=== PATIENT | female | born 1995 | race Caucasian/White ===

== ENCOUNTER 2020-10-23 15:57 | Inpatient (IN) | payer BC, OTHER ==
[~2020-10-23] VITALS: Ht 162.6 cm; Wt 112.0 kg
[~2020-10-23 15:57] MED LIST: Macrobid 100 M100 MG PO; PHENAZOPYRIDINE95 MG PO; PRENATAL TABLE1 EAC2 PO; Zofran4 MG PO
[2020-10-23 16:34] LABS: BASOPHILS ABSOLUTE AUTO 0.01 K/mm3 (0.00-0.23); BASOPHILS PERCENT AUTO 0 % (0-2); EOSINOPHILS ABSOLUTE AUTO 0.05 K/mm3 (0.00-0.68); EOSINOPHILS PERCENT AUTO 1 % (0-6); Hematocrit 40.6 % (33.0-51.0); Hemoglobin 13.3 g/dL (11.5-16.0); IMMATURE GRAN ABSOLUTE AUTO 0.03 K/mm3 (0.00-0.10); IMMATURE GRAN PERCENT AUTO 0 % (0-1); LYMPHOCYTES ABSOLUTE AUTO 1.08 K/mm3 (0.84-5.20); LYMPHOCYTES PERCENT AUTO 12 % (21-46); MONOCYTES ABSOLUTE AUTO 0.69 K/mm3 (0.16-1.47); MONOCYTES PERCENT AUTO 7 % (4-13); Mean Corpuscular HGB 31.3 pg (26.0-34.0); Mean Corpuscular HGB Conc 32.8 g/dL (31.5-36.5); Mean Corpuscular Volume 96 fL (80-100); Mean Platelet Volume 10.8 fL (9.1-12.4); NEUTROPHILS ABSOLUTE AUTO 7.47 K/mm3 (1.96-9.15); NEUTROPHILS PERCENT AUTO 80 % (41-73); Platelet Count 186 K/mm3 (150-400); RDW Coefficient Variation 14.1 % (11.7-14.2); RDW Standard Deviation 49.1 fL (35.1-46.3); Red Blood Cell Count 4.25 M/mm3 (3.80-5.20); White Blood Cell Count 9.33 K/mm3 (4.00-11.30)
[2020-10-23 16:54] LABS: Alanine Aminotransfer (ALT/SGP 13 U/L (12-78); Albumin, Blood 2.5 g/dL (3.4-5.0); Albumin/Globulin Ratio 0.7 (0.8-1.8); Alk Phos 123 U/L (50-136); Anion Gap 9 mmol/L (6-16); Aspartate Aminotrans (AST/SGOT 15 U/L (12-37); Bilirubin, Total 0.3 mg/dL (0.1-1.0); Blood Urea Nitrogen 12 mg/dL (8-24); Bun/Creatinine Ratio 22.3 (12.0-20.0); CO2, Blood 20 mmol/L (21-32); Calcium, Blood 9.2 mg/dL (8.5-10.1); Chloride, Blood 111 mmol/L (98-108); Creatinine, Blood 0.54 mg/dL (0.40-1.00); Globulin, Blood 3.8 g/dL (2.2-4.0); Glomerular Filtration Rate >60 (60-); Glucose, Blood 77 mg/dL (70-99); Potassium, Blood 4.5 mmol/L (3.5-5.5); Sodium, Blood 140 mmol/L (136-145); Total Protein, Blood 6.3 g/dL (6.4-8.2)
[2020-10-23 16:57] LABS: Protein, Urine Random 261.6 mg/dL (0.0-11.9); Protein/Creat Ratio, Ur Random 1.5
[2020-10-23 19:18] LABS: Influenza A, PCR Negative (NEGATIVE); Influenza B, PCR Negative (NEGATIVE); Resp Syncytial Virus, PCR Negative (NEGATIVE); SARS-Cov-2 (COVID-19) PCR, MMC Negative (NEGATIVE)
--- NOTE | 2020-10-24 08:50 | NUR ---
A FEW MIN BEFORE 0850, PT CALLED ME IN STATING SHE FELT A "POP" AND HAD A SPOT OF BLOOD WHILE ATTEMPTING TO USE THE BATHROOM. SHE WAS WALKING AROUND IN HER ROOM AND STARTED TO LEAK A SMALL AMOUNT OF PINK TINGED FLUID ON THE FLOOR. I HAD HER LAY IN BED AND NITRAZINED THE FLUID WHICH CAME BACK EQUIVOCAL. SHE IS NOW ATTEMPTING A BM ON THE TOILET WITH HER S.O. IN THE BATHROOM WITH HER. I WILL UPDATE THE PROVIDER.
--- NOTE | 2020-10-24 20:50 | NUR ---
UNABLE TO ASSESS CLONUS AND DTR'S. PT HAS EPIDURAL WITH HEAVY LEGS
[2020-10-24 20:53] LABS: BASOPHILS ABSOLUTE AUTO 0.03 K/mm3 (0.00-0.23); BASOPHILS PERCENT AUTO 0 % (0-2); EOSINOPHILS PERCENT AUTO 0 % (0-6); Hematocrit 41.8 % (33.0-51.0); Hemoglobin 13.8 g/dL (11.5-16.0); IMMATURE GRAN ABSOLUTE AUTO 0.09 K/mm3 (0.00-0.10); IMMATURE GRAN PERCENT AUTO 1 % (0-1); LYMPHOCYTES ABSOLUTE AUTO 1.06 K/mm3 (0.84-5.20); LYMPHOCYTES PERCENT AUTO 6 % (21-46); MONOCYTES PERCENT AUTO 6 % (4-13); Mean Corpuscular HGB 31.3 pg (26.0-34.0); Mean Corpuscular Volume 95 fL (80-100); Mean Platelet Volume 10.7 fL (9.1-12.4); NEUTROPHILS PERCENT AUTO 88 % (41-73); Platelet Count 218 K/mm3 (150-400); RDW Coefficient Variation 14.4 % (11.7-14.2); RDW Standard Deviation 50.3 fL (35.1-46.3); Red Blood Cell Count 4.41 M/mm3 (3.80-5.20); White Blood Cell Count 18.38 K/mm3 (4.00-11.30)
[2020-10-24 21:16] LABS: Alanine Aminotransfer (ALT/SGP 14 U/L (12-78); Albumin, Blood 2.5 g/dL (3.4-5.0); Albumin/Globulin Ratio 0.7 (0.8-1.8); Alk Phos 129 U/L (50-136); Anion Gap 9 mmol/L (6-16); Aspartate Aminotrans (AST/SGOT 17 U/L (12-37); Bilirubin, Total 0.5 mg/dL (0.1-1.0); Blood Urea Nitrogen 16 mg/dL (8-24); CO2, Blood 21 mmol/L (21-32); Chloride, Blood 106 mmol/L (98-108); Creatinine, Blood 0.73 mg/dL (0.40-1.00); Globulin, Blood 3.8 g/dL (2.2-4.0); Glomerular Filtration Rate >60 (60-); Glucose, Blood 108 mg/dL (70-99); Potassium, Blood 4.4 mmol/L (3.5-5.5); Sodium, Blood 136 mmol/L (136-145); Total Protein, Blood 6.3 g/dL (6.4-8.2)
--- NOTE | 2020-10-25 01:07 | NUR ---
RT STOOD BY FOR DELIVERY. BABY WAS DELIVERED TO WARMER WITH STRONG CRY, GOOD TONE AND COLOR. BABY WAS DRIED AND STIMULATED, NO RT INTERVENTIONS REQUIRED. RN TO CALL IF RT NEEDED.
[2020-10-25 03:41] LABS: BASOPHILS ABSOLUTE AUTO 0.05 K/mm3 (0.00-0.23); BASOPHILS PERCENT AUTO 0 % (0-2); EOSINOPHILS PERCENT AUTO 0 % (0-6); Hematocrit 37.4 % (33.0-51.0); Hemoglobin 12.3 g/dL (11.5-16.0); IMMATURE GRAN PERCENT AUTO 1 % (0-1); LYMPHOCYTES ABSOLUTE AUTO 0.91 K/mm3 (0.84-5.20); LYMPHOCYTES PERCENT AUTO 5 % (21-46); MONOCYTES ABSOLUTE AUTO 1.29 K/mm3 (0.16-1.47); MONOCYTES PERCENT AUTO 6 % (4-13); Mean Corpuscular HGB 31.1 pg (26.0-34.0); Mean Corpuscular HGB Conc 32.9 g/dL (31.5-36.5); Mean Corpuscular Volume 95 fL (80-100); Mean Platelet Volume 10.6 fL (9.1-12.4); NEUTROPHILS ABSOLUTE AUTO 17.86 K/mm3 (1.96-9.15); NEUTROPHILS PERCENT AUTO 88 % (41-73); Platelet Count 189 K/mm3 (150-400); RDW Coefficient Variation 14.3 % (11.7-14.2); RDW Standard Deviation 49.9 fL (35.1-46.3); Red Blood Cell Count 3.95 M/mm3 (3.80-5.20); White Blood Cell Count 20.21 K/mm3 (4.00-11.30)
[2020-10-25 04:01] LABS: Alanine Aminotransfer (ALT/SGP 11 U/L (12-78); Albumin, Blood 2.1 g/dL (3.4-5.0); Albumin/Globulin Ratio 0.6 (0.8-1.8); Alk Phos 113 U/L (50-136); Anion Gap 10 mmol/L (6-16); Aspartate Aminotrans (AST/SGOT 18 U/L (12-37); Bilirubin, Total 0.5 mg/dL (0.1-1.0); Blood Urea Nitrogen 17 mg/dL (8-24); Bun/Creatinine Ratio 20.6 (12.0-20.0); CO2, Blood 19 mmol/L (21-32); Calcium, Blood 8.6 mg/dL (8.5-10.1); Chloride, Blood 106 mmol/L (98-108); Creatinine, Blood 0.83 mg/dL (0.40-1.00); Globulin, Blood 3.3 g/dL (2.2-4.0); Glomerular Filtration Rate >60 (60-); Glucose, Blood 89 mg/dL (70-99); Potassium, Blood 4.6 mmol/L (3.5-5.5); Sodium, Blood 135 mmol/L (136-145); Total Protein, Blood 5.4 g/dL (6.4-8.2)
[2020-10-25 12:39] LABS: Mean Corpuscular HGB 31.3 pg (26.0-34.0); Mean Corpuscular HGB Conc 33.3 g/dL (31.5-36.5); Mean Corpuscular Volume 94 fL (80-100); Mean Platelet Volume 10.7 fL (9.1-12.4); Platelet Count 174 K/mm3 (150-400); RDW Coefficient Variation 14.3 % (11.7-14.2); Red Blood Cell Count 3.51 M/mm3 (3.80-5.20); White Blood Cell Count 14.35 K/mm3 (4.00-11.30)
--- NOTE | 2020-10-25 17:34 | NUR ---
PT HAD PRIMARY C/S LAST NOC SHIFT, PT HAS CINTRON INPLACE DRAINING YELLOW URINE, ABD BINDER IN PLACE, DRESSING CLEAN DRY AND INTACT, SL FLUSHES WELL, PT MEDICATES X3 FOR PAIN THIS SHIFT, PT ALDO ANY HEADACHE, VISUAL DISTRUBANCES OR UPPER GASTRIC PAIN THIS SHIFT, VS Q 2HRS PER DR. MARTÍNEZ, VITALS TO BE CHANGED TO Q 4HR IF VITALS WITH IN STABLE PERAMETERS PER Kaleb WAGNER CNM WILL UPDATED CNM. PT UP IN CHAIR TO EAT DINNER TOLORATED WELL.
--- NOTE | 2020-10-26 09:25 | NUR ---
up in bathroom
--- NOTE | 2020-10-26 09:45 | NUR ---
attempt to br feed, walked in 5 minutes into trying and took over with getting baby to latch
--- NOTE | 2020-10-26 10:14 | NUR ---
getting up to walk the shay
--- NOTE | 2020-10-26 13:59 | NUR ---
ambulating in the shay, this is pt second walk in the shay, does well, just slow moving
--- NOTE | 2020-10-26 18:03 | NUR ---
pt motrin is due, but she is sleeping, will give her meds when she wakes up
[2020-10-27] MEDS ORDERED: Percocet 5-3251 EACH PO (10:35)
== END 2020-10-27 11:45 | disposition home or self-care (01) | DRG 788 ==
LOC: OBS 15:57 → BC 15:57 → OBS 18:04 → BC 18:06
PROVIDERS: Obstetrics & Gynecology; ADMIT Advanced Practice Midwife
PROC: 3E0P7VZ Introduction of Hormone into Female Reproductive, Via Natural or Artificial Opening (ICD-10-PCS; 2020-10-23)
PROC: 3E033VJ Introduction of Other Hormone into Peripheral Vein, Percutaneous Approach (ICD-10-PCS; 2020-10-24)
PROC: 3E0R3BZ Introduction of Anesthetic Agent into Spinal Canal, Percutaneous Approach (ICD-10-PCS; 2020-10-24)
PROC: 00HU33Z Insertion of Infusion Device into Spinal Canal, Percutaneous Approach (ICD-10-PCS; 2020-10-24)
PROC: 10H07YZ Insertion of Other Device into Products of Conception, Via Natural or Artificial Opening (ICD-10-PCS; 2020-10-24)
PROC: 10D00Z1 Extraction of Products of Conception, Low, Open Approach (ICD-10-PCS; principal; 2020-10-25 00:30)
DX: O14.04 Mild to moderate pre-eclampsia, complicating childbirth (principal); O33.5XX0 Maternal care for disproportion due to unusually large fetus, not applicable or unspecified; O62.1 Secondary uterine inertia; Z20.828 Contact with and (suspected) exposure to other viral communicable diseases; Z3A.41 41 weeks gestation of pregnancy; Z37.0 Single live birth; O99.214 Obesity complicating childbirth; E66.9 Obesity, unspecified
CPT/HCPCS: 0241U; 36415; 51702; 59025; 80053; 82570; 84156; 85025; 85027; 86850; 86900; 86901; A9270; J0456; J0690; J1885; J2001; J2210; J2370; J2405; J2590; J2765; J3010; J7050; J7120

== ENCOUNTER 2020-10-30 23:38 | Emergency (ER) | payer BC ==
[~2020-10-30] VITALS: Ht 162.6 cm; Wt 103.4 kg
[~2020-10-30 23:38] MED LIST changes: +Percocet 5-3251 EACH PO
[2020-10-31 00:26] LABS: Source, Urine Clean Catch
[2020-10-31 00:35] LABS: Bilirubin, Urine Neg (Neg); Blood, Urine 5+ (Neg); Glucose Qualitative, Urine Neg (Neg); Ketones, Urine Neg (Neg); Leukocyte Esterase, Urine 2+ (Neg); Nitrite, Urine Neg (Neg); Protein, Urine 3+ (Neg); Urobilinogen, Urine NORM (Normal)
[2020-10-31 00:54] LABS: Appearance, Urine Hazy (Clear); Bacteria Few /hpf; Color, Urine Yellow (P-Yellow); Red Blood Cells, Urine TNTC /hpf (0-2); Squamous Epithelial Cells Few /hpf (Few)
[2020-10-31] MEDS ORDERED: CEPH500 PO (01:19)
== END 2020-10-31 01:45 | disposition home or self-care (01) ==
LOC: ER 23:38
PROVIDERS: Emergency Medicine
DX: O86.20 Urinary tract infection following delivery, unspecified (principal); Z88.8 Allergy status to other drugs, medicaments and biological substances; Z98.890 Other specified postprocedural states
CPT/HCPCS: 81001; 87086; 87147; A9270-GY

== ENCOUNTER 2020-11-15 10:49 | Emergency (ER) | payer BC, SELFPAY ==
[~2020-11-15] VITALS: Ht 162.6 cm; Wt 94.3 kg
[~2020-11-15 10:49] MED LIST changes: +CEPH500 PO
[2020-11-15 11:32] LABS: BASOPHILS ABSOLUTE AUTO 0.03 K/mm3 (0.00-0.23); BASOPHILS PERCENT AUTO 0 % (0-2); EOSINOPHILS PERCENT AUTO 1 % (0-6); Hematocrit 41.5 % (33.0-51.0); IMMATURE GRAN ABSOLUTE AUTO 0.02 K/mm3 (0.00-0.10); IMMATURE GRAN PERCENT AUTO 0 % (0-1); LYMPHOCYTES ABSOLUTE AUTO 1.48 K/mm3 (0.84-5.20); LYMPHOCYTES PERCENT AUTO 17 % (21-46); MONOCYTES ABSOLUTE AUTO 0.53 K/mm3 (0.16-1.47); MONOCYTES PERCENT AUTO 6 % (4-13); Mean Corpuscular HGB 30.5 pg (26.0-34.0); Mean Corpuscular HGB Conc 31.3 g/dL (31.5-36.5); Mean Corpuscular Volume 97 fL (80-100); Mean Platelet Volume 9.5 fL (9.1-12.4); NEUTROPHILS ABSOLUTE AUTO 6.69 K/mm3 (1.96-9.15); NEUTROPHILS PERCENT AUTO 76 % (41-73); Platelet Count 359 K/mm3 (150-400); RDW Standard Deviation 46.3 fL (35.1-46.3); Red Blood Cell Count 4.26 M/mm3 (3.80-5.20); White Blood Cell Count 8.85 K/mm3 (4.00-11.30)
[2020-11-15 11:50] LABS: Alanine Aminotransfer (ALT/SGP 24 U/L (12-78); Albumin, Blood 3.4 g/dL (3.4-5.0); Albumin/Globulin Ratio 0.8 (0.8-1.8); Alk Phos 79 U/L (50-136); Anion Gap 9 mmol/L (6-16); Aspartate Aminotrans (AST/SGOT 12 U/L (12-37); Bilirubin, Total 0.5 mg/dL (0.1-1.0); Blood Urea Nitrogen 10 mg/dL (8-24); CO2, Blood 21 mmol/L (21-32); Calcium, Blood 9.3 mg/dL (8.5-10.1); Chloride, Blood 110 mmol/L (98-108); Creatinine, Blood 0.59 mg/dL (0.40-1.00); Globulin, Blood 4.5 g/dL (2.2-4.0); Glomerular Filtration Rate >60 (60-); Glucose, Blood 83 mg/dL (70-99); Potassium, Blood 4.2 mmol/L (3.5-5.5); Sodium, Blood 140 mmol/L (136-145); Total Protein, Blood 7.9 g/dL (6.4-8.2)
[2020-11-15 11:51] LABS: International Normalized Ratio 0.95; Prothrombin Time Results 10.2 Sec (9.7-11.5)
[2020-11-15 12:31] LABS: Influenza A, PCR Negative (NEGATIVE); Influenza B, PCR Negative (NEGATIVE); Resp Syncytial Virus, PCR Negative (NEGATIVE); SARS-Cov-2 (COVID-19) PCR, MMC Negative (NEGATIVE)
[2020-11-15] MEDS ORDERED: CEPH500 PO (14:57)
== END 2020-11-15 16:04 | disposition home or self-care (01) ==
LOC: ER 10:49
PROVIDERS: Physician Assistant
DX: T81.41XA Infection following a procedure, superficial incisional surgical site, initial encounter (principal); L03.311 Cellulitis of abdominal wall; Z88.1 Allergy status to other antibiotic agents; Z88.8 Allergy status to other drugs, medicaments and biological substances
CPT/HCPCS: 0241U; 36415; 74177; 80053; 83605; 85025; 85610; 85730; 87040; 93005; 93010; 96365-59; 96375; 99284-25; J0690; J1200; J1885; J2405; J2765; J7030; Q9967

== ENCOUNTER 2020-11-24 01:28 | Inpatient (IN) | payer BC, SELFPAY ==
[~2020-11-24] VITALS: Ht 162.6 cm; Wt 93.0 kg
[2020-11-24 03:20] LABS: Alanine Aminotransfer (ALT/SGP 16 U/L (12-78); Albumin, Blood 3.1 g/dL (3.4-5.0); Albumin/Globulin Ratio 0.7 (0.8-1.8); Alk Phos 101 U/L (50-136); Anion Gap 9 mmol/L (6-16); Aspartate Aminotrans (AST/SGOT 9 U/L (12-37); Bilirubin, Total 0.4 mg/dL (0.1-1.0); Blood Urea Nitrogen 8 mg/dL (8-24); Bun/Creatinine Ratio 12.8 (12.0-20.0); CO2, Blood 24 mmol/L (21-32); Calcium, Blood 9.3 mg/dL (8.5-10.1); Chloride, Blood 107 mmol/L (98-108); Creatinine, Blood 0.62 mg/dL (0.40-1.00); Globulin, Blood 4.7 g/dL (2.2-4.0); Glomerular Filtration Rate >60 (60-); Glucose, Blood 98 mg/dL (70-99); Potassium, Blood 4.3 mmol/L (3.5-5.5); Sodium, Blood 140 mmol/L (136-145); Total Protein, Blood 7.8 g/dL (6.4-8.2)
[2020-11-24 03:48] LABS: Source, Urine Clean Catch
[2020-11-24 03:50] LABS: Bilirubin, Urine Neg (Neg); Blood, Urine 1+ (Neg); Glucose Qualitative, Urine Neg (Neg); Ketones, Urine 2+ (Neg); Leukocyte Esterase, Urine Neg (Neg); Nitrite, Urine Neg (Neg); Protein, Urine Neg (Neg); Urobilinogen, Urine NORM (Normal)
[2020-11-24 03:52] LABS: Appearance, Urine Clear (Clear); Color, Urine Yellow (P-Yellow)
[2020-11-24 03:59] LABS: BASOPHILS ABSOLUTE AUTO 0.03 K/mm3 (0.00-0.23); BASOPHILS PERCENT AUTO 0 % (0-2); EOSINOPHILS ABSOLUTE AUTO 0.04 K/mm3 (0.00-0.68); EOSINOPHILS PERCENT AUTO 0 % (0-6); Hematocrit 39.1 % (33.0-51.0); Hemoglobin 12.2 g/dL (11.5-16.0); IMMATURE GRAN ABSOLUTE AUTO 0.04 K/mm3 (0.00-0.10); IMMATURE GRAN PERCENT AUTO 0 % (0-1); LYMPHOCYTES PERCENT AUTO 7 % (21-46); MONOCYTES ABSOLUTE AUTO 0.79 K/mm3 (0.16-1.47); MONOCYTES PERCENT AUTO 5 % (4-13); Mean Corpuscular HGB 29.5 pg (26.0-34.0); Mean Corpuscular HGB Conc 31.2 g/dL (31.5-36.5); Mean Corpuscular Volume 95 fL (80-100); Mean Platelet Volume 8.9 fL (9.1-12.4); NEUTROPHILS ABSOLUTE AUTO 12.67 K/mm3 (1.96-9.15); NEUTROPHILS PERCENT AUTO 87 % (41-73); Platelet Count 362 K/mm3 (150-400); RDW Standard Deviation 45.5 fL (35.1-46.3); Red Blood Cell Count 4.13 M/mm3 (3.80-5.20); White Blood Cell Count 14.57 K/mm3 (4.00-11.30)
[2020-11-24 04:00] LABS: Bacteria Few /hpf; Squamous Epithelial Cells Few /hpf (Few); White Blood Cells, Urine 0-2 /hpf (0-5)
--- NOTE | 2020-11-24 05:25 | NUR ---
PT NEW ADMIT FROM ER FOR ABD ABCESS POST . PT A/O, IS PAINFUL W/MVMT. INCISION NEARLY HEALED, NO REDNESS/DRNG NOTED. PT DENIES PAIN TO INCISION, REPORTS PAIN TO LOWER ABD ABOVE INCISION, REPORTS MORE PAIN ON LLQ. PT DENIES N/V/SOB. HR NOTED TACHY, PT DENIES CP/PRESSURE. PT ORIENTED TO ROOM/CALL LIGHT. IN ROOM. PLAN TO MONITOR AND TX PER ORDERS.
--- NOTE | 2020-11-24 05:32 | NUR ---
ABX: PT ASKING IF ABX IS OK TO TAKE WHILE . PER PHARMACIST, UNASYN DOES CROSS OVER INTO BREAST MILK. PT UPDATED, PT REPORTS ONLY HAVING TAKEN ABX ONE OTHER TIME (FOR CURRENT ABCESS) PT REPORTS NO REACTIONS TO CURRENT ABX, AND BABY HAS HAD NO ADVERSE REACTIONS NOTED. PT REPORTS "I THINK MY MOM HAD A REACTION TO A 'CILLIAN' ABX BUT I'M NOT SURE" PT EDUCATED OF POTENTIAL FOR HER OR BABY TO HAVE A REACTION TO ANY ABX. DISCUSSED ABX THERAPY FOR CURRENT INFECTION/ABCESS. PT VERBALIZES UNDERSTANDING AND WISHES TO PROCEED W/ABX PER ORDERS.
[2020-11-24 05:45] LABS: Influenza A, PCR Negative (NEGATIVE); Influenza B, PCR Negative (NEGATIVE); Resp Syncytial Virus, PCR Negative (NEGATIVE); SARS-Cov-2 (COVID-19) PCR, MMC Negative (NEGATIVE)
[2020-11-25 04:17] LABS: BASOPHILS ABSOLUTE AUTO 0.02 K/mm3 (0.00-0.23); BASOPHILS PERCENT AUTO 0 % (0-2); EOSINOPHILS ABSOLUTE AUTO 0.14 K/mm3 (0.00-0.68); EOSINOPHILS PERCENT AUTO 2 % (0-6); Hematocrit 35.1 % (33.0-51.0); Hemoglobin 10.3 g/dL (11.5-16.0); IMMATURE GRAN ABSOLUTE AUTO 0.03 K/mm3 (0.00-0.10); IMMATURE GRAN PERCENT AUTO 0 % (0-1); LYMPHOCYTES ABSOLUTE AUTO 1.49 K/mm3 (0.84-5.20); LYMPHOCYTES PERCENT AUTO 16 % (21-46); MONOCYTES PERCENT AUTO 7 % (4-13); Mean Corpuscular HGB 29.3 pg (26.0-34.0); Mean Corpuscular HGB Conc 29.3 g/dL (31.5-36.5); Mean Platelet Volume 9.2 fL (9.1-12.4); NEUTROPHILS ABSOLUTE AUTO 7.21 K/mm3 (1.96-9.15); NEUTROPHILS PERCENT AUTO 75 % (41-73); Platelet Count 275 K/mm3 (150-400); RDW Coefficient Variation 13.2 % (11.7-14.2); RDW Standard Deviation 48.7 fL (35.1-46.3); Red Blood Cell Count 3.52 M/mm3 (3.80-5.20); White Blood Cell Count 9.59 K/mm3 (4.00-11.30)
[2020-11-25 04:18] LABS: Mean Corpuscular Volume 100 fL (80-100)
--- NOTE | 2020-11-25 04:22 | NUR ---
SHIFT SUMMARY: PT A&O X4. FEBRILE IN BEGINNING OF SHIFT-PROVIDER NOTIFIED. MOST RECENT TEMP WNL AT 98.3. HR TACHY THROUGHOUT NIGHT. PT C/O PAIN IN RLQ. MEDICATED TWICE WITH OXY PER EMAR. GIVEN K PAD THIS MORNING. PT VOIDING IN BSC. SBA FOR ALL TRANSFERS/AMBULATION. PT MARIBEL PO AND DENIES N/V. PT ABLE TO REST MOST OF NIGHT. IVF AND ABX INFUSING PER ORDERS.
--- NOTE | 2020-11-25 17:18 | NUR ---
SHIFT SUMMARY PT HAS DONE WELL THIS SHIFT. TMAX 99.1. PAIN HAS BEEN MANAGED WITH PO MEDICATION AND IV TORADOL PER EMAR. UP TO SHOWER THIS SHIFT AND HAS BEEN IN A RECLINER MOST OF THE DAY. PT STATES THAT SHE FEELS AREA OF PAIN IS "GETTING SMALLER". PLAN TO CONTINUE WITH IV ABX.
--- NOTE | 2020-11-26 04:13 | NUR ---
SHIFT SUMMARY: PT S/P ABD ABSCESS DRG. PT A&O X4. MAX TEMP OF 101.4. PT BEING MEDICATED WITH TORADOL, TYLENOL AND OXY PER EMAR. PT CONTINUES TO C/O LOWER ABD PAIN WHICH INCREASES WITH MOVEMENT/AMBULATION. PT RATING PAIN 3-4 AT REST. AMBULATING TO BATHROOM WITH SBA. SLOW TO TRANSFER R/T PAIN. PT REPORTS FEELING CONSTIPATED. PASSING FLATUS. PT ENCOURAGED TO WALK THE HALLWAY THIS SHIFT, HOWEVER DECLINING AND WANTING TO SLEEP. NAUSEATED IN BEGINNING OF SHIFT AND MEDICATED WITH ZOFRAN AND REGLAN PER EMAR. PLAN TO CONTINUE IV ABX. AWAITING FINAL BLOOD CULTURE RESULTS.
[2020-11-26 05:40] LABS: BASOPHILS ABSOLUTE AUTO 0.02 K/mm3 (0.00-0.23); BASOPHILS PERCENT AUTO 0 % (0-2); EOSINOPHILS ABSOLUTE AUTO 0.18 K/mm3 (0.00-0.68); EOSINOPHILS PERCENT AUTO 2 % (0-6); Hematocrit 30.6 % (33.0-51.0); Hemoglobin 9.5 g/dL (11.5-16.0); IMMATURE GRAN ABSOLUTE AUTO 0.02 K/mm3 (0.00-0.10); IMMATURE GRAN PERCENT AUTO 0 % (0-1); LYMPHOCYTES ABSOLUTE AUTO 1.05 K/mm3 (0.84-5.20); LYMPHOCYTES PERCENT AUTO 12 % (21-46); MONOCYTES ABSOLUTE AUTO 0.63 K/mm3 (0.16-1.47); MONOCYTES PERCENT AUTO 7 % (4-13); Mean Corpuscular HGB 29.4 pg (26.0-34.0); Mean Platelet Volume 8.7 fL (9.1-12.4); NEUTROPHILS ABSOLUTE AUTO 6.87 K/mm3 (1.96-9.15); NEUTROPHILS PERCENT AUTO 78 % (41-73); Platelet Count 328 K/mm3 (150-400); RDW Coefficient Variation 13.2 % (11.7-14.2); RDW Standard Deviation 46.3 fL (35.1-46.3); Red Blood Cell Count 3.23 M/mm3 (3.80-5.20); White Blood Cell Count 8.77 K/mm3 (4.00-11.30)
[2020-11-26 05:48] LABS: Mean Corpuscular Volume 95 fL (80-100)
[2020-11-26 10:42] LABS: Influenza A, PCR Negative (NEGATIVE); Influenza B, PCR Negative (NEGATIVE); Resp Syncytial Virus, PCR Negative (NEGATIVE); SARS-Cov-2 (COVID-19) PCR, MMC Negative (NEGATIVE)
--- NOTE | 2020-11-26 17:37 | NUR ---
SUMMARY: PT IS POD3 PERCUTANIOUS DRAINAGE OF ABSCESS. A/O, VSS. SURGICAL SITES WNL. DOES HAVE SMALL AMT VAGINAL BLEED, SHARYN PAD IN PLACE. MAX TEMP THIS SHIFT WAS 99.9 WILL CTM. ENCOURAGING MOBILITY, PT PAINFUL AND APPEARS WEAK WHEN WALKING, SBA, PT ABLE TO GO ON 2 WALKS IN THE [place]UD[place]. MEDICATED FOR PAIN PER EMAR, PRN. PT HAD BM TODAY. NO ACUTE SAFETY CONCERNS AT THIS TIME. WILL REPORT TO TONY LOWE.
[2020-11-27 04:10] LABS: BASOPHILS ABSOLUTE AUTO 0.02 K/mm3 (0.00-0.23); BASOPHILS PERCENT AUTO 0 % (0-2); EOSINOPHILS ABSOLUTE AUTO 0.15 K/mm3 (0.00-0.68); EOSINOPHILS PERCENT AUTO 2 % (0-6); Hematocrit 32.7 % (33.0-51.0); IMMATURE GRAN ABSOLUTE AUTO 0.02 K/mm3 (0.00-0.10); IMMATURE GRAN PERCENT AUTO 0 % (0-1); LYMPHOCYTES ABSOLUTE AUTO 1.23 K/mm3 (0.84-5.20); LYMPHOCYTES PERCENT AUTO 16 % (21-46); MONOCYTES ABSOLUTE AUTO 0.61 K/mm3 (0.16-1.47); MONOCYTES PERCENT AUTO 8 % (4-13); Mean Corpuscular HGB 28.9 pg (26.0-34.0); Mean Corpuscular HGB Conc 30.6 g/dL (31.5-36.5); Mean Corpuscular Volume 95 fL (80-100); Mean Platelet Volume 8.7 fL (9.1-12.4); NEUTROPHILS ABSOLUTE AUTO 5.85 K/mm3 (1.96-9.15); NEUTROPHILS PERCENT AUTO 74 % (41-73); Platelet Count 349 K/mm3 (150-400); RDW Coefficient Variation 13.2 % (11.7-14.2); RDW Standard Deviation 46.3 fL (35.1-46.3); Red Blood Cell Count 3.46 M/mm3 (3.80-5.20); White Blood Cell Count 7.88 K/mm3 (4.00-11.30)
--- NOTE | 2020-11-27 05:15 | NUR ---
PT T-MAX 99.2 THIS SHIFT; HR REMAINS TACHY LOW 100'S (HR DID INC TO 120 AFTER AMBULATION) PT DENIED CP/PRESSURE/SOB; OTHER VSS. PT REP ABD PAIN LESS SEVERE, REP PAIN LOCALIZING TO RLQ. PT REP HAVING "A RIB OUT" SINCE BEFORE ADMISSION, REP RIB PAIN MORE BOTHERSOME THAN ABD PAIN THIS AM. NO REDNESS/DRNG NOTED FROM HEALING INCISIONS. PT VOIDING URINE W/O DIFFICULTY, CONT TO HAVE SMALL AMT VAGINAL BLEEDING. PT REP MILD NAUSEA BRIEFLY EARLY IN NIGHT, DECLINED NEED FOR NAUSEA MEDS. PT UP PPB W/FWW+SBA, IS PAINFUL W/MVMT; AMBULATION ENC PT MARIBEL. PT PUMPING BREASTMILK, MILK STORED IN FRIDGE. ABX CONT PER ORDERS.
--- NOTE | 2020-11-27 17:12 | NUR ---
SUMMARY: NO ACUTE CHANGE. VSS, AFIBRILE. PT ABLE TO TAKE SEVERAL WALKS. PAIN MANAGED PER EMAR. PLAN IS FOR DISCHARGE LATER TONIGHT, PT AWARE. NO SAFETY CONCERNS.
[2020-11-27] MEDS ORDERED: LEVO750 PO (19:37)
--- NOTE | 2020-11-27 20:31 | NUR ---
PAIN: PT SITTING IN CHAIR, CRYING R/T PAIN. PT STATES PAIN "ABOUT THS SAME IT HAS BEEN FOR THE LAST SEVERAL DAYS" PT REPORTS SOME NAUSEA R/T PAIN. PT VERBALIZING CONCERNS R/T D/C HOME W/O PAIN MED SCRIPT. CURRENT PAIN MED ORDERS, WELL PLAN FOR PT TO D/C W/TYLENOL AND MOTRIN FOR PAIN MGMT TONIGHT, REV W/PT AND . PT REMAINS TEARFUL STATING "I JUST WANT TO SEE MY BABY, I DON'T KNOW WHAT TO DO" PT REQ PAIN MEDS AT THIS TIME AND WANTIGN TO "THINK ABOUT WHAT TO DO" R/T D/C HOME TONIGHT. PT EUDCATED, SUPPORT GIVEN. WILL MONITOR
--- NOTE | 2020-11-27 21:00 | NUR ---
PT REP FEELING "MUCH BETTER" PT STATES PAIN MARIBEL 3/10 AT THIS TIME, REP ABD PAIN IN RLQ. PT STATES PAIN IN RIGHT RIB MORE BOTHERSOME THAN ABD PAIN. PT STATES "I THINK I HAD A PANIC ATTACK EARLIER" REP FEELING MORE CALM AND COMFORTABLE AND WANTS TO D/C HOME TONIGHT.
--- NOTE | 2020-11-27 22:09 | NUR ---
DISCHARGE SUMMARY: PT D/C HOME W/. PT ASSISTED OUT IN W/C BY PHYSIOLOGICAL CHEMIST. PT A/O, NO DISTRESS NOTED AT TIME OF D/C. PT REP PAIN MARIBEL, DENIES N/V. EXTENSIVE SUPPORT AND EDUCATION PROVIDED, PT RECEPTIVE TO INFO. PLAN FOR PT TO MANAGE PAIN W/OTC PAIN MEDS FOR TONIGHT AND CONTACT MD IN AM IF PAIN NOT CONTROLLED. ABX CALLED INTO [facility] PER PT REQ. PT PT HOME HEALTH CLINICIAN TOMORROW. ALL QUESTIONS ANSWERED, DISCHARGE INSTRUCTIONS SENT HOME W/PT.
== END 2020-11-27 22:00 | disposition home or self-care (01) | DRG 776 ==
LOC: ER 01:28 → SURS 01:29
PROVIDERS: Obstetrics & Gynecology; Student in an Organized Health Care Education/Training Program; ADMIT Obstetrics & Gynecology
PROC: 0W9F3ZZ Drainage of Abdominal Wall, Percutaneous Approach (ICD-10-PCS; principal; 2020-11-24)
DX: O86.02 Infection of obstetric surgical wound, deep incisional site (principal); L02.211 Cutaneous abscess of abdominal wall; Z20.822 Contact with and (suspected) exposure to COVID-19; O99.63 Diseases of the digestive system complicating the puerperium; K59.03 Drug induced constipation; O99.215 Obesity complicating the puerperium; E66.9 Obesity, unspecified; O14.05 Mild to moderate pre-eclampsia, complicating the puerperium
CPT/HCPCS: 0241U; 36415; 74177; 75989; 80053; 81001; 83605; 85025; 87040; 87070; 87075; 87205; 96361; 96365; 96374-59; 96376; 99285-25; A9270; G0378; J0290; J0295; J1580; J1885; J2270; J2405; J2765; J3010; J7030; J7040; J7120; Q9967

== ENCOUNTER 2020-12-15 18:59 | Inpatient (IN) | payer BC, OTHER ==
[~2020-12-15] VITALS: Ht 162.6 cm; Wt 93.0 kg
[~2020-12-15 18:59] MED LIST changes: +LEVO750 PO
[2020-12-15 22:16] LABS: BASOPHILS ABSOLUTE AUTO 0.03 K/mm3 (0.00-0.23); BASOPHILS PERCENT AUTO 0 % (0-2); EOSINOPHILS ABSOLUTE AUTO 0.16 K/mm3 (0.00-0.68); EOSINOPHILS PERCENT AUTO 1 % (0-6); Hematocrit 37.4 % (33.0-51.0); Hemoglobin 11.8 g/dL (11.5-16.0); IMMATURE GRAN ABSOLUTE AUTO 0.04 K/mm3 (0.00-0.10); IMMATURE GRAN PERCENT AUTO 0 % (0-1); LYMPHOCYTES ABSOLUTE AUTO 1.74 K/mm3 (0.84-5.20); LYMPHOCYTES PERCENT AUTO 13 % (21-46); MONOCYTES ABSOLUTE AUTO 0.76 K/mm3 (0.16-1.47); MONOCYTES PERCENT AUTO 6 % (4-13); Mean Corpuscular HGB 28.9 pg (26.0-34.0); Mean Corpuscular HGB Conc 31.6 g/dL (31.5-36.5); Mean Corpuscular Volume 92 fL (80-100); Mean Platelet Volume 9.9 fL (9.1-12.4); NEUTROPHILS ABSOLUTE AUTO 10.27 K/mm3 (1.96-9.15); NEUTROPHILS PERCENT AUTO 79 % (41-73); Platelet Count 297 K/mm3 (150-400); RDW Coefficient Variation 14.6 % (11.7-14.2); RDW Standard Deviation 49.8 fL (35.1-46.3); Red Blood Cell Count 4.08 M/mm3 (3.80-5.20)
[2020-12-15 22:44] LABS: Alanine Aminotransfer (ALT/SGP 32 U/L (12-78); Albumin, Blood 3.4 g/dL (3.4-5.0); Albumin/Globulin Ratio 0.7 (0.8-1.8); Alk Phos 89 U/L (50-136); Anion Gap 8 mmol/L (6-16); Aspartate Aminotrans (AST/SGOT 16 U/L (12-37); Bilirubin, Total 0.6 mg/dL (0.1-1.0); Blood Urea Nitrogen 10 mg/dL (8-24); Bun/Creatinine Ratio 14.9 (12.0-20.0); CO2, Blood 24 mmol/L (21-32); Calcium, Blood 9.1 mg/dL (8.5-10.1); Chloride, Blood 107 mmol/L (98-108); Creatinine, Blood 0.67 mg/dL (0.40-1.00); Globulin, Blood 4.8 g/dL (2.2-4.0); Glomerular Filtration Rate >60 (60-); Glucose, Blood 99 mg/dL (70-99); Sodium, Blood 139 mmol/L (136-145); Total Protein, Blood 8.2 g/dL (6.4-8.2)
[2020-12-15 23:39] LABS: Source, Urine Clean Catch
[2020-12-15 23:44] LABS: Bilirubin, Urine Neg (Neg); Blood, Urine Neg (Neg); Glucose Qualitative, Urine Neg (Neg); Ketones, Urine Neg (Neg); Leukocyte Esterase, Urine Neg (Neg); Nitrite, Urine Neg (Neg); Protein, Urine Neg (Neg); Urobilinogen, Urine NORM (Normal)
[2020-12-15 23:47] LABS: Appearance, Urine Clear (Clear); Color, Urine Yellow (P-Yellow)
[2020-12-16 03:14] LABS: Influenza A, PCR NEGATIVE (NEGATIVE); Influenza B, PCR NEGATIVE (NEGATIVE); Resp Syncytial Virus, PCR NEGATIVE (NEGATIVE); SARS-Cov-2 (COVID-19) PCR, MMC NEGATIVE (NEGATIVE)
--- NOTE | 2020-12-16 18:11 | NUR ---
SUMMARY: NO ACUTE CHANGE TODAY. VSS, A/O, INDEP IN ROOM. PT BACK FROM CYST DRAINAGE PROCEDURE AT ABOUT 1145, SMALL BANDAIDE TO ABD, CDI. PT HAS REPORTED MINIMAL PAIN, SOME NAUSEA. MEDICATED PER EMAR. IV ABX INFUSED. NO SAFETY CONCERNS AT THIS TIME.
[2020-12-17 01:03] LABS: BASOPHILS ABSOLUTE AUTO 0.05 K/mm3 (0.00-0.23); BASOPHILS PERCENT AUTO 1 % (0-2); EOSINOPHILS ABSOLUTE AUTO 0.31 K/mm3 (0.00-0.68); EOSINOPHILS PERCENT AUTO 3 % (0-6); Hematocrit 34.7 % (33.0-51.0); Hemoglobin 10.8 g/dL (11.5-16.0); IMMATURE GRAN ABSOLUTE AUTO 0.03 K/mm3 (0.00-0.10); IMMATURE GRAN PERCENT AUTO 0 % (0-1); LYMPHOCYTES ABSOLUTE AUTO 1.78 K/mm3 (0.84-5.20); LYMPHOCYTES PERCENT AUTO 17 % (21-46); MONOCYTES ABSOLUTE AUTO 0.66 K/mm3 (0.16-1.47); MONOCYTES PERCENT AUTO 6 % (4-13); Mean Corpuscular HGB 29.1 pg (26.0-34.0); Mean Corpuscular HGB Conc 31.1 g/dL (31.5-36.5); Mean Corpuscular Volume 94 fL (80-100); Mean Platelet Volume 9.7 fL (9.1-12.4); NEUTROPHILS ABSOLUTE AUTO 7.43 K/mm3 (1.96-9.15); NEUTROPHILS PERCENT AUTO 73 % (41-73); Platelet Count 274 K/mm3 (150-400); RDW Coefficient Variation 14.6 % (11.7-14.2); RDW Standard Deviation 50.4 fL (35.1-46.3); Red Blood Cell Count 3.71 M/mm3 (3.80-5.20); White Blood Cell Count 10.26 K/mm3 (4.00-11.30)
[2020-12-17 01:22] LABS: Anion Gap 6 mmol/L (6-16); Blood Urea Nitrogen 13 mg/dL (8-24); Bun/Creatinine Ratio 15.8 (12.0-20.0); CO2, Blood 24 mmol/L (21-32); Calcium, Blood 8.7 mg/dL (8.5-10.1); Chloride, Blood 109 mmol/L (98-108); Creatinine, Blood 0.82 mg/dL (0.40-1.00); Glomerular Filtration Rate >60 (60-); Glucose, Blood 89 mg/dL (70-99); Potassium, Blood 4.3 mmol/L (3.5-5.5); Sodium, Blood 139 mmol/L (136-145)
--- NOTE | 2020-12-17 04:03 | NUR ---
SHIFT SUMMARY: VS WNL THROUGHOUT SHIFT. PT C/O LOWER ABD PAIN ONCE AND MEDICATED WITH OXY AND TORADOL PER EMAR. DENIES N/V. PT PUMPING IN ROOM AND BREAST MILK BEING STORED IN FBC. VANCO TROUGH HIGH THIS SHIFT AND ABX RESCHEDULED FOR 0600.
--- NOTE | 2020-12-17 12:55 | NUR ---
SHE IS COMFORTABLE AFTER A POWERGLIDE WAS PLACED AND TORADOL WAS GIVEN. SHE HAS PUMPED HER BREAST MILK AND THE WELDER METAL FAB TOOK IT TO THE APPROPRIATE REFRIGERATOR IN FAMILY . HER VANCO SCHEDULE AND LABS HAVE BEEN CHANGED ONCE WE REGAINED IV ACCESS. SHE IS FULLY AMBULATORY AND EATS ATLEAST 50%. ABD WALL PINK ALONG THE LOWER SURFACE. DRY BANDAID FROM YESTERDAY'S CT ASPIRATION. NO FEVER.
--- NOTE | 2020-12-17 14:49 | NUR ---
SHE HAS A VISITOR. SHE HAS ALSO PUMPED A LITTLE MORE MILK TO SAVE.
--- NOTE | 2020-12-17 16:52 | NUR ---
HER IS STILL VISITING. SHE HAS C/O GERD, ASKING FOR TUMS. ORDER RECEIVED. SHE RECEIVED TORADOL X1 AND OXYCODONE X1 THIS SHIFT. SHE SAYS SHE WILL WANT ANOTHER DOSE OF TORADOL WHEN IT CAN BE GIVEN. LOW ABD PINK, NOT RED. SAYS THE CULTURE SHOWS SHE IS ON THE RIGHT ANTIBIOTIC.
--- NOTE | 2020-12-17 18:43 | NUR ---
HER HAS LEFT FOR THE DAY AND TAKEN THE SAVED BREAST MILK WITH HIM.
--- NOTE | 2020-12-18 05:48 | NUR ---
SHIFT SUMMARY PT RESTED WELL T/O NIGHT. AAOX4. DISCOMFORT AT TOLERABLE LEVEL T/O NIGHT, NO PAIN MEDS. DENIES NAUSEA/EMESIS. ABD INCISION WITH REDNESS NOTED, BANDAID OVER ASPIRATION SITE C/D/I. INDEPENDENT IN ROOM. GOOD PO INTAKE + OUTPUT. PT PUMPING BREAST MILK + STORING IN FBP FRIDGE. NO ACUTE CHANGES OVER NIGHT. CURRENTLY PT RESTING WELL IN BED WITH CALL LIGHT IN REACH. WILL REPORT OFF TO DAY SHIFT RN DURING BEDSIDE REPORTING.
[2020-12-18 11:39] LABS: Vancomycin, Trough 12.4 ug/mL (5.0-10.0)
--- NOTE | 2020-12-18 15:39 | NUR ---
PT RETURNED TO ROOM FROM RECEIVING US GUIDED DRAIN PLACEMENT
--- NOTE | 2020-12-18 16:42 | NUR ---
SHIFT SUMMARY PT A&OX4, VSS, S/P SECOND U.S. GUIDED ASP W/DRAIN PLACEMENT. PAIN MANAGED WITH OXYCODONE, TORADOL AND TYLENOL. NAUSEA TREATED WITH ZOFRAN AND REGLAN. VOIDING WELL. INDEPENDENT IN ROOM. USES CALL LIGHT APPROPRIATELY. AT BEDSIDE. WILL REPORT TO NEXT RN.
--- NOTE | 2020-12-18 17:26 | NUR ---
ASSUMED CARE OF PATIENT. PTS AT BEDSIDE. PT REPORTS SLIGHT HEADACHE BUT STATES MUCH BETTER THAN IT WAS. PT DENIES NAUSEA, PIGTAIL WITH SCANT AMOUNT BLOODY DRAINAGE
--- NOTE | 2020-12-19 05:06 | NUR ---
SHIFT SUMMARY PT AOX4. VSS. S/P U/S GUIDED ASP WITH PIGTAIL DRAIN PLACEMENT. DRAINA OUTPUT OF 30ML, PURLENT. PAIN MANAGED WITH TORADOL. PT DENIES NARCOTICS AT THIS TIME R/T /PUMPING. PT DENIES NAUSEA T/O SHIFT. VOIDING WELL. SHE IS INDEPENDENT IN ROOM. NO ACUTE CHANGES T/O SHIFT. ABX INFUSING WITH NS ON FLOR POWERGLIDE. PT REPORTS SHE SLEPT WELL T/O SHIFT. CALL LIGHT WITHIN REACH.
[2020-12-19 13:10] LABS: BASOPHILS ABSOLUTE AUTO 0.03 K/mm3 (0.00-0.23); BASOPHILS PERCENT AUTO 1 % (0-2); EOSINOPHILS ABSOLUTE AUTO 0.32 K/mm3 (0.00-0.68); EOSINOPHILS PERCENT AUTO 5 % (0-6); Hemoglobin 10.2 g/dL (11.5-16.0); IMMATURE GRAN ABSOLUTE AUTO 0.01 K/mm3 (0.00-0.10); IMMATURE GRAN PERCENT AUTO 0 % (0-1); LYMPHOCYTES ABSOLUTE AUTO 1.26 K/mm3 (0.84-5.20); LYMPHOCYTES PERCENT AUTO 20 % (21-46); MONOCYTES ABSOLUTE AUTO 0.39 K/mm3 (0.16-1.47); MONOCYTES PERCENT AUTO 6 % (4-13); Mean Corpuscular HGB 28.7 pg (26.0-34.0); Mean Corpuscular HGB Conc 30.9 g/dL (31.5-36.5); Mean Corpuscular Volume 93 fL (80-100); Mean Platelet Volume 9.4 fL (9.1-12.4); NEUTROPHILS ABSOLUTE AUTO 4.32 K/mm3 (1.96-9.15); NEUTROPHILS PERCENT AUTO 68 % (41-73); Platelet Count 293 K/mm3 (150-400); RDW Coefficient Variation 14.1 % (11.7-14.2); RDW Standard Deviation 48.5 fL (35.1-46.3); Red Blood Cell Count 3.55 M/mm3 (3.80-5.20); White Blood Cell Count 6.33 K/mm3 (4.00-11.30)
--- NOTE | 2020-12-19 15:41 | NUR ---
DISCHARGED TO HOME WITH , PT REPORTS PAIN IS ADEQUATELY CONTROLLED, MARIBEL PO FOOD AND FLUIDS WITHOUT NAUSEA. AMBULATING IN HALLWAYS. PTS PRESCRIPTIONS TRANSMITTED PER DR GARZON TO LIZBETH [facility]. PTS BREAST MILK GIVEN TO PATIENT AT TIME OF DISCHARGE
== END 2020-12-19 15:39 | disposition home or self-care (01) | DRG 872 ==
LOC: SURS 18:59
PROVIDERS: Internal Medicine; Pharmacist; ADMIT Obstetrics & Gynecology
PROC: 0W9F3ZZ Drainage of Abdominal Wall, Percutaneous Approach (ICD-10-PCS; 2020-12-16)
PROC: 0W9F30Z Drainage of Abdominal Wall with Drainage Device, Percutaneous Approach (ICD-10-PCS; principal; 2020-12-18)
DX: A41.89 Other specified sepsis (principal); L02.211 Cutaneous abscess of abdominal wall; L03.311 Cellulitis of abdominal wall; Z20.822 Contact with and (suspected) exposure to COVID-19; D50.9 Iron deficiency anemia, unspecified; O14.05 Mild to moderate pre-eclampsia, complicating the puerperium; E66.9 Obesity, unspecified; F32.9 Major depressive disorder, single episode, unspecified; Z68.35 Body mass index [BMI] 35.0-35.9, adult; Z88.8 Allergy status to other drugs, medicaments and biological substances
CPT/HCPCS: 0241U; 10030; 36415; 74177; 76705; 76942; 80048; 80053; 80202; 81003; 83605; 84145; 85025; 87040; 87070; 87075; 87077; 87102; 87205; A9270; J0295; J1885; J2543; J2765; J3370; J7030; J7050; Q9967